=== PATIENT | female | born 2000 | race Caucasian/White ===

== ENCOUNTER 2022-04-18 11:21 | Outpatient (CLI) | payer BC, SELFPAY | END 2022-04-18 11:22 | disposition home or self-care (01) | PROVIDERS: Visit Provider Advanced Practice Midwife | DX: Z83.49 Family history of other endocrine, nutritional and metabolic diseases (principal) | CPT/HCPCS: 84443 ==

== ENCOUNTER 2023-06-11 09:35 | Outpatient (CLI) | payer BC, SELFPAY | END 2023-06-11 09:36 | disposition home or self-care (01) | PROVIDERS: PCP Advanced Practice Midwife; Visit Provider Advanced Practice Midwife | DX: Z01.419 Encounter for gynecological examination (general) (routine) without abnormal findings (principal); E28.2 Polycystic ovarian syndrome; Z83.49 Family history of other endocrine, nutritional and metabolic diseases | CPT/HCPCS: 84443 ==

== ENCOUNTER 2025-04-04 11:16 | Outpatient (CLI) | payer BC, SELFPAY ==
[2025-04-05 13:34] LABS: Cannabinoid Screen Urine Negative (Negative); Methamphetamines Screen Urine Negative (Negative); Tricyclic Antidepressant Urine Negative (Negative)
== END 2025-04-04 11:17 | disposition home or self-care (01) ==
LOC: NPINS 11:17
PROVIDERS: PCP Advanced Practice Midwife; Visit Provider Nurse Practitioner Psychiatric/Mental Health
DX: F90.9 Attention-deficit hyperactivity disorder, unspecified type
CPT/HCPCS: 80306